=== PATIENT | female | born 1995 | race Caucasian/White ===

== ENCOUNTER 2022-07-25 10:30 | Emergency (ER) | payer OTHER ==
[~2022-07-25 10:30] MED LIST: COLACE 100MG C100 MG PO; IBUPROFEN600 MG PO; LORTAB 5-325 M1 EACH PO; PRENATAL VITAM1 EAC8 PO
[2022-07-25 12:31] LABS: BORDETELLA PARAPERTUSSIS Not Detected (Not Detectd); BORDETELLA PERTUSSIS Not Detected (Not Detectd); CHLAMYDIA PNEUMONIAE Not Detected (Not Detectd); CORONAVIRUS HKU1 Not Detected (Not Detectd); CORONAVIRUS NL63 Not Detected (Not Detectd); CORONAVIRUS OC43 Not Detected (Not Detectd); CORONOAVIRUS 229E Not Detected (Not Detectd); HUMAN METAPNEUMOVIRUS Not Detected (Not Detectd); HUMAN RHINOVIRUS/ENTEROVIRUS Not Detected (Not Detectd); INFLUENZA A Not Detected (Not Detectd); INFLUENZA B Not Detected (Not Detectd); MYCOPLASMA PNEUMONIAE Not Detected (Not Detectd); PARAINFLUENZA VIRUS 1 Not Detected (Not Detectd); PARAINFLUENZA VIRUS 2 Not Detected (Not Detectd); PARAINFLUENZA VIRUS 3 Not Detected (Not Detectd); PARAINFLUENZA VIRUS 4 Not Detected (Not Detectd); RESPIRATORY SYNCYTIAL VIRUS Not Detected (Not Detectd)
[2022-07-25 12:35] LABS: HEMOGLOBIN 13.7 gm/dl (12.3-15.3); RED BLOOD COUNT 4.24 M/UL (4.00-5.10); WHITE BLOOD COUNT 23.8 K/UL (4.5-11.0)
[2022-07-25 12:52] LABS: BUN/CREATININE RATIO 21 (0-10)
[2022-07-25 13:24] LABS: SARS-CoV-2 NOT DETECTED (Not Detectd)
[2022-07-25] MEDS ORDERED: OMNICEF 300 MG300 MG PO (14:19)
[2022-07-25] MEDS ORDERED: ZOFRAN 4 MG TAB4 MG PO (14:22)
== END 2022-07-25 15:16 | disposition home or self-care (01) ==
LOC: ER1 10:30
PROVIDERS: Physician Assistant
DX: E86.0 Dehydration (principal); N39.0 Urinary tract infection, site not specified; D72.829 Elevated white blood cell count, unspecified; F17.210 Nicotine dependence, cigarettes, uncomplicated; Z20.822 Contact with and (suspected) exposure to COVID-19
CPT/HCPCS: 71045; 80053; 81001; 84703; 85025; 87081; 87086; 87633; 87880; 96374; 96375; 99283; J0696; J2405